=== PATIENT | female | born 1945 | race Hispanic/Latino ===

== ENCOUNTER → 2018-11-24 | Outpatient (CLI) | payer MEDICARE ==
[~2018-11-24] MED LIST: ATOR10 PO; BUSP15 PO; CEPH500T PO; ESOM40CA PO; EZET10 PO; FURO40TA7 PO; GLIP10TA9 PO; LEVO50 PO; LEVO500T2 PO; LIRA0.6P SQ; METF750T2 PO; METO25 PO; OXYB15TA PO; QUIN20TA26 PO; TRAM50TA4 PO
== END | disposition home or self-care (01) ==
LOC: RAH 11:36
PROVIDERS: ATTEND Internal Medicine
DX: I82.402 Acute embolism and thrombosis of unspecified deep veins of left lower extremity (principal)
CPT/HCPCS: 93971

== ENCOUNTER 2019-03-03 16:30 | Inpatient (IN) | payer MEDICARE ==
[~2019-03-03] VITALS: Ht 160 cm; Wt 114.2 kg
[~2019-03-03 16:30] MED LIST changes: -ATOR10 PO; -CEPH500T PO; -ESOM40CA PO; -METF750T2 PO; -TRAM50TA4 PO
[2019-03-03 17:47] LABS: BASOPHILS % (AUTO) 0.4 % (0.0-5.0); EOSINOPHILS % (AUTO) 1.7 % (0.0-8.0); LYMPHOCYTES % (AUTO) 14.2 % (21.0-51.0); MEAN CORPUSCULAR VOLUME 90.8 fL (79-99); MONOCYTES % (AUTO) 6.3 % (3.0-13.0); NEUTROPHILS % (AUTO) 77.4 % (40.0-77.0); NUCLEATED RED BLOOD CELLS 0.1 % (0.0-0.19); PLATELET COUNT (AUTO) 65 K/uL (130-400); RED BLOOD CELL COUNT(AUTO) 3.19 MIL/uL (4.00-5.50); RED CELL DISTRIBUTION WIDTH 15.5 % (11.0-15.5); WHITE BLOOD COUNT (AUTO) 3.1 K/uL (4.8-10.8)
[2019-03-03 17:57] LABS: CREATININE 0.8 mg/dL (0.5-1.5); POTASSIUM 4.5 mmol/L (3.5-5.1)
[2019-03-03 18:02] LABS: ALBUMIN 2.9 g/dL (3.5-5.0); BILIRUBIN,TOTAL 0.6 mg/dL (0.2-1.0); TOTAL PROTEIN, SERUM 7.6 g/dL (6.0-8.3)
[2019-03-03 18:13] LABS: B-TYPE NATRIURETIC PEPTIDE 487 pg/mL (0-100)
[2019-03-03 18:18] LABS: PLATELET MORPHOLOGY COMMENT DECREASED
[2019-03-03 18:45] LABS: APPEARANCE,URINE Clear (CLEAR); BILIRUBIN,URINE Negative (NEGATIVE); COLOR,URINE Yellow (YELLOW); GLUCOSE, URINE (UA) Negative (NEGATIVE); KETONES,URINE Negative (NEGATIVE); LEUKOCYTE ESTERASE ,URINE Negative (NEGATIVE); NITRATE,URINE Negative (NEGATIVE); OCCULT BLOOD,URINE Negative (NEGATIVE); PH,URINE 5.5 (5.0-8.0); PROTEIN,URINE POS 1+ mg/dL (NEGATIVE); UROBILINOGEN,URINE 0.2 mg/dL (0.2-1.0)
[2019-03-03 18:51] LABS: BACTERIA,URINE Rare /HPF (None Seen); MUCUS,URINE Rare LPF (None Seen); RBC,URINE 0-1 /HPF (0-1); SQUAMOUS EPITHELIAL CELL,UR Few /HPF (0-2); WBC,URINE 0-1 /HPF (0-1); YEAST,URINE BUDDING Rare /HPF (None Seen)
[2019-03-03] MEDS ORDERED: FUROSEMIDE 10 MG/ML 4ML VIAL ONE (19:09)
[2019-03-03] MEDS ORDERED: DEXTROSE 50%-WATER 50 ML DISP.SYRIN IV PRN (19:30)
[2019-03-03] MEDS ORDERED: GLUCAGON 1MG KIT 1 MG ML IM PRN (19:30)
[2019-03-03] MEDS ORDERED: MAGNESIUM 2GM PREMIX 50ML 50 ML IV PRN (19:45)
[2019-03-03] MEDS ORDERED: ACETAMINOPHEN 325 MG TAB PO PRN ×2 (19:45)
[2019-03-03] MEDS ORDERED: POTASSIUM CHLORIDE 20MEQ/100ML 100 ML IV PRN (19:45)
[2019-03-03] MEDS ORDERED: POTASSIUM CHLORIDE 10% ELIXIR 20 MEQ/15 ML UDCUP PO PRN (19:45)
[2019-03-03] MEDS ORDERED: ONDANSETRON HCL 4 MG/2 ML VIAL IV PRN (19:45)
[2019-03-03] MEDS ORDERED: LIDOCAINE HCL-MPF 1% 2ML VIAL IVP PRN (19:45)
[2019-03-03] MEDS ORDERED: NITROGLYCERIN 0.4 MG SL TAB SL PRN (19:45)
[2019-03-03 20:11] LABS: % IRON SATURATION 13.8 % (22-44)
[2019-03-03 20:17] LABS: HEMOGLOBIN A1C 6.2 % (4.0-6.0)
[2019-03-03] MEDS ORDERED: AZITHROMYCIN 500MG+NS 250ML 250 ML IV SCH (20:30)
[2019-03-03] MEDS: LEVOFLOXACIN 500 MG/D5W 100 ML 100 ML IV SCH (20:30)
[2019-03-03] MEDS ORDERED: FAMOTIDINE 20MG TAB 20 MG TAB ONE (20:51)
[2019-03-03] MEDS: FAMOTIDINE 20MG TAB 20 MG TAB PO SCH (21:00)
[2019-03-03] MEDS: INSULIN HUMULIN R 100 UNIT/ML 3ML SQ SCH (21:00)
[2019-03-03] MEDS ORDERED: LEVOFLOXACIN 500 MG/D5W 100 ML 100 ML ONE (23:00)
[2019-03-03] MEDS ORDERED: AZITHROMYCIN 500MG+NS 250ML 250 ML IV ONE (23:43)
[2019-03-04] MEDS ORDERED: ACETAMINOPHEN 325 MG TAB ONE (00:59)
[2019-03-04] MEDS ORDERED: SODIUM CHLORIDE 3% FOR INHALATION 4 ML/AMP VIAL.NEB IH ONE ×3 (01:33→17:59)
[2019-03-04] MEDS ORDERED: DIPHENHYDRAMINE HCL 25 MG CAPSULE ONE (05:01)
[2019-03-04 06:09] LABS: BASOPHILS % (AUTO) 0.7 % (0.0-5.0); EOSINOPHILS % (AUTO) 1.5 % (0.0-8.0); LYMPHOCYTES % (AUTO) 16.8 % (21.0-51.0); MEAN CORPUSCULAR HEMOGLOBIN 29.6 pg (27.0-33.0); MEAN CORPUSCULAR VOLUME 89.7 fL (79-99); MONOCYTES % (AUTO) 8.2 % (3.0-13.0); NEUTROPHILS % (AUTO) 72.8 % (40.0-77.0); PLATELET COUNT (AUTO) 69 K/uL (130-400); RED BLOOD CELL COUNT(AUTO) 3.23 MIL/uL (4.00-5.50); RED CELL DISTRIBUTION WIDTH 15.5 % (11.0-15.5); WHITE BLOOD COUNT (AUTO) 2.9 K/uL (4.8-10.8)
[2019-03-04 06:22] LABS: ALBUMIN 2.8 g/dL (3.5-5.0); BILIRUBIN,TOTAL 0.9 mg/dL (0.2-1.0); MAGNESIUM 1.6 mg/dL (1.80-2.40); POTASSIUM 3.8 mmol/L (3.5-5.1); TOTAL PROTEIN, SERUM 7.3 g/dL (6.0-8.3)
[2019-03-04 06:41] LABS: B-TYPE NATRIURETIC PEPTIDE 586 pg/mL (0-100)
[2019-03-04] MEDS: INSULIN HUMULIN R 100 UNIT/ML 3ML SQ SCH ×4 (07:30→21:00)
[2019-03-04 07:34] LABS: EOSINOPHILS % (MANUAL) 1 % (1-6); LYMPHOCYTES % (MANUAL) 13 % (22-44); MONOCYTES % (MANUAL) 3 % (2-9); SEGMENTED NEUTROPHILS % 83 % (40-70)
[2019-03-04 07:46] LABS: MAN.DIFF COMMENT-IMPRESSION MANUAL DIFFERENTIAL
[2019-03-04 07:49] LABS: PLATELET MORPHOLOGY COMMENT DECREASED
[2019-03-04 09:30] VITALS: BP 186/81
[2019-03-04 11:00] VITALS: BP 185/81
--- NOTE | 2019-03-04 12:00 | NUR ---
DR. DOMINIQUE TA SPOKE WITH [facility]. STATES THEY WILL CALL BACK.
[2019-03-04] MEDS: FAMOTIDINE 20MG TAB 20 MG TAB PO SCH ×2 (12:17→21:59)
[2019-03-04] MEDS: FUROSEMIDE 10 MG/ML 4ML VIAL IV SCH ×2 (12:22→20:15)
--- NOTE | 2019-03-04 13:14 | NUR ---
ÁNGEL Carmichael met with pt who lives alone, has provider 4hrs a day thru [facility] to assist with ADLS, and home management. Pt has gianni shafer and w/c. Pt states she needs O2 for home. Pt has no HH services, daughter margareth Cerda [phone] is ER contact Addendum: 03/04/19 at 1316 by SALVADOR KENYON SS Amended: Links added.
[2019-03-04] MEDS ORDERED: ALPR0.25 PO (15:23)
--- NOTE | 2019-03-04 15:59 | NUR ---
MAYKEL BURNETT, OF DR. FOX, CALLED BACK INFORMATION GIVEN TO HER, STATES WILL CALL YOU AGAIN WITH RECOMMENDATIONS.
[2019-03-04 20:00] VITALS: BP 160/74
[2019-03-04] MEDS: IPRATROPIUM/ALBUTEROL SULFATE 3 ML SOLUTION IH PRN (20:13)
[2019-03-04] MEDS ORDERED: MAGNESIUM 2GM PREMIX 50ML 50 ML IV PRN ×2 (20:15)
[2019-03-04] MEDS ORDERED: OXYBUTYNIN CHLORIDE 5 MG TABLET PO PRN (21:00)
[2019-03-04] MEDS: LEVOFLOXACIN 500 MG/D5W 100 ML 100 ML IV SCH (21:58)
[2019-03-04] MEDS: METOPROLOL TARTRATE 50 MG TAB PO SCH (21:59)
[2019-03-04] MEDS ORDERED: DIPHENHYDRAMINE HCL 25 MG CAPSULE PO SCH (22:00)
[2019-03-04] MEDS: BUSPIRONE HCL 5 MG TABLET PO PRN (22:32)
[2019-03-04] MEDS: ALPRAZOLAM 0.25 MG TABLET PO PRN (22:32)
[2019-03-05] VITALS (7 sets, daily range): BP systolic 128–183; BP diastolic 52–81
[2019-03-05] MEDS ORDERED: LEVOTHYROXINE 50 MCG TABLET ONE (05:17)
[2019-03-05] MEDS: INSULIN HUMULIN R 100 UNIT/ML 3ML SQ SCH ×4 (05:45→21:18)
[2019-03-05] MEDS: LEVOTHYROXINE 50 MCG TABLET PO SCH (05:45)
[2019-03-05 07:36] LABS: BASOPHILS % (AUTO) 1.4 % (0.0-5.0); EOSINOPHILS % (AUTO) 2.8 % (0.0-8.0); HEMATOCRIT 33.2 % (36-48); LYMPHOCYTES % (AUTO) 15.4 % (21.0-51.0); MEAN CORPUSCULAR HEMOGLOBIN 29.8 pg (27.0-33.0); MEAN CORPUSCULAR HGB CONC 33.4 g/dL (32.0-36.0); MEAN CORPUSCULAR VOLUME 89.3 fL (79-99); MONOCYTES % (AUTO) 6.5 % (3.0-13.0); NEUTROPHILS % (AUTO) 73.9 % (40.0-77.0); PLATELET COUNT (AUTO) 86 K/uL (130-400); RED BLOOD CELL COUNT(AUTO) 3.72 MIL/uL (4.00-5.50); RED CELL DISTRIBUTION WIDTH 15.2 % (11.0-15.5); WHITE BLOOD COUNT (AUTO) 4.2 K/uL (4.8-10.8)
[2019-03-05 07:52] LABS: CREATININE 1.1 mg/dL (0.5-1.5); POTASSIUM 3.5 mmol/L (3.5-5.1)
[2019-03-05] MEDS: FUROSEMIDE 10 MG/ML 4ML VIAL IV SCH ×2 (08:38→17:20)
[2019-03-05] MEDS: FAMOTIDINE 20MG TAB 20 MG TAB PO SCH ×2 (08:39→21:10)
[2019-03-05] MEDS: METOPROLOL TARTRATE 50 MG TAB PO SCH ×2 (08:39→21:11)
[2019-03-05] MEDS: QUINAPRIL HCL 20 MG PO SCH ×2 (08:53→21:00)
[2019-03-05] MEDS: POTASSIUM CHLORIDE 20 MEQ ERTAB PO PRN ×2 (17:21→19:52)
[2019-03-05] MEDS: LEVOFLOXACIN 500 MG/D5W 100 ML 100 ML IV SCH (19:52)
[2019-03-06 04:00] VITALS: BP 178/75
[2019-03-06] MEDS ORDERED: HYDRALAZINE HCL 20 MG/ML VIAL IV PRN ×2 (04:00)
[2019-03-06] MEDS ORDERED: HYDRALAZINE HCL 20 MG/ML VIAL ONE (04:01)
[2019-03-06] MEDS: ALPRAZOLAM 0.25 MG TABLET PO PRN ×2 (04:19→21:53)
[2019-03-06 04:28] LABS: BASOPHILS % (AUTO) 0.7 % (0.0-5.0); HEMATOCRIT 30.6 % (36-48); LYMPHOCYTES % (AUTO) 18.9 % (21.0-51.0); MEAN CORPUSCULAR HEMOGLOBIN 29.5 pg (27.0-33.0); MEAN CORPUSCULAR HGB CONC 33.1 g/dL (32.0-36.0); MEAN CORPUSCULAR VOLUME 89.2 fL (79-99); MONOCYTES % (AUTO) 8.5 % (3.0-13.0); NEUTROPHILS % (AUTO) 68.9 % (40.0-77.0); NUCLEATED RED BLOOD CELLS 0.1 % (0.0-0.19); PLATELET COUNT (AUTO) 77 K/uL (130-400); RED BLOOD CELL COUNT(AUTO) 3.43 MIL/uL (4.00-5.50); RED CELL DISTRIBUTION WIDTH 15.5 % (11.0-15.5); WHITE BLOOD COUNT (AUTO) 3.8 K/uL (4.8-10.8)
[2019-03-06 04:34] LABS: CREATININE 1.1 mg/dL (0.5-1.5); POTASSIUM 3.7 mmol/L (3.5-5.1)
[2019-03-06 06:07] VITALS: BP 155/70
[2019-03-06] MEDS: IPRATROPIUM/ALBUTEROL SULFATE 3 ML SOLUTION IH PRN ×2 (06:18→19:01)
[2019-03-06] MEDS: INSULIN HUMULIN R 100 UNIT/ML 3ML SQ SCH ×4 (06:33→21:49)
[2019-03-06] MEDS: LEVOTHYROXINE 50 MCG TABLET PO SCH (06:38)
[2019-03-06] MEDS: POTASSIUM CHLORIDE 20 MEQ ERTAB PO PRN (06:38)
[2019-03-06 08:00] VITALS: BP 163/71
[2019-03-06] MEDS: QUINAPRIL HCL 20 MG PO SCH ×2 (09:00→21:00)
[2019-03-06] MEDS: METOPROLOL TARTRATE 50 MG TAB PO SCH ×2 (09:13→20:20)
[2019-03-06] MEDS: FUROSEMIDE 10 MG/ML 4ML VIAL IV SCH ×2 (09:13→17:39)
[2019-03-06] MEDS: FAMOTIDINE 20MG TAB 20 MG TAB PO SCH ×2 (09:13→20:21)
[2019-03-06] MEDS: BUSPIRONE HCL 5 MG TABLET PO PRN (10:28)
[2019-03-06 11:00] VITALS: BP 109/44
--- NOTE | 2019-03-06 11:28 | NUR ---
RD Notification Pt tolerating 75gm CCD with report of no GI distress and Good PO intake at 75-100%. Pt LBM 03/05/19. Pt monitored labs: BUN 19, GFR 52, Glu 131, Alb 2.8. Pt reports no nutritional questions or concerns at this time. RD to continue to monitor. Please notify RD as additional nutrition concerns arise. Thank you. Addendum: 03/06/19 at [address] Amended: Links added.
--- NOTE | 2019-03-06 13:00 | NUR ---
Janine Referral/PASRR faxed to [facility]. Davila notified via phone, mentions will eval in am.
[2019-03-06] MEDS ORDERED: FLUCONAZOLE 200 MG/NS 100 ML 100 ML IV SCH ×2 (15:42→19:16)
[2019-03-06 16:00] VITALS: BP 140/64
[2019-03-06 20:00] VITALS: BP 136/70
[2019-03-06] MEDS: LEVOFLOXACIN 500 MG/D5W 100 ML 100 ML IV SCH (20:21)
[2019-03-07] VITALS: BP 156/70
[2019-03-07 04:00] VITALS: BP 125/71
[2019-03-07] MEDS: INSULIN HUMULIN R 100 UNIT/ML 3ML SQ SCH ×3 (07:03→16:30)
[2019-03-07] MEDS: LEVOTHYROXINE 50 MCG TABLET PO SCH (07:05)
[2019-03-07 07:32] VITALS: BP 125/60
[2019-03-07] MEDS: QUINAPRIL HCL 20 MG PO SCH (09:00)
[2019-03-07 11:04] VITALS: BP 123/65
[2019-03-07] MEDS: METOPROLOL TARTRATE 50 MG TAB PO SCH (11:40)
[2019-03-07] MEDS: ZOSYN 3.375GM+NS 50ML 50 ML IV SCH ×2 (11:40→16:51)
[2019-03-07] MEDS: FUROSEMIDE 10 MG/ML 4ML VIAL IV SCH ×2 (11:41→16:51)
[2019-03-07] MEDS: FAMOTIDINE 20MG TAB 20 MG TAB PO SCH (11:41)
[2019-03-07 12:01] LABS: INR 1.24 (0.85-1.15)
--- NOTE | 2019-03-07 14:00 | NUR ---
REFERRAL TO [facility] IN PROCESS PICC LINE, ORDER, FREDERICK FROM [facility] WAS HERE TO SEE PATIENT, MED REC WAS FAXED,CALEB REYES WAS AWARE; ALL GO FOR THIS PT. Addendum: 03/07/19 at 1747 by BRAIN HAMLIN RN CM Amended: Links added.
--- NOTE | 2019-03-07 16:00 | NUR ---
ACCEPTED BY ANGELA Addendum: 03/07/19 at 1747 by BRAIN HAMLIN RN CM Amended: Links added.
[2019-03-07 16:29] VITALS: BP 157/54
--- NOTE | 2019-03-07 18:00 | NUR ---
[facility] STAFF HERE, PATIENT DISCHARGED TO SNF. USING TEACH BACK TECH. RE. NEW MEDS, HOME MEDS, AND WHAT TO CONTINUE AT [facility]. YOU WILL CONTINUE CARE AT [facility] FOR CONTINUITY OF CARE FOR ANTIBIOTIC THERAPY. FOLLOW UP WITH YOUR PRIMARY DOCTOR SEAN IN 1 WEEK AFTER DISCHARGE FROM [facility]. IF HAVING FEVERS, CHILLS, SHORTNESS OF BREATH OR COUGH WORSENS CALL YOUR PRIMARY DOCTOR. CALL 911 IF CHEST PAIN OR SHORTNESS OF BREATH DOES NOT RESOLVE WITH REST. REPORT GIVEN TO ALLA GILLIAM FROM [facility], PICC LINE IN PLACE PER DR. OCHOA, AND OKAY TO USE. INTACT NO BLEEDING. IV OUT INTACT, NO BLEEDING, TELE REMOVED BY YAMILKA BENSON. AAOX3, NO SOB. DAUGHTERS AT BEDSIDE.
== END 2019-03-07 18:50 | DRG 291 ==
LOC: EDH 16:30 → EDHIP 18:50 → 4CH 03-04 08:28
PROVIDERS: ADMIT Internal Medicine; ATTEND Internal Medicine
PROC: 02HV33Z Insertion of Infusion Device into Superior Vena Cava, Percutaneous Approach (ICD-10-PCS; principal; 2019-03-07)
DX: I11.0 Hypertensive heart disease with heart failure (principal); J18.9 Pneumonia, unspecified organism; B37.1 Pulmonary candidiasis; G93.41 Metabolic encephalopathy; Z68.42 Body mass index [BMI] 45.0-49.9, adult; I50.33 Acute on chronic diastolic (congestive) heart failure; E66.01 Morbid (severe) obesity due to excess calories; D69.6 Thrombocytopenia, unspecified; R19.5 Other fecal abnormalities; F41.9 Anxiety disorder, unspecified; B96.5 Pseudomonas (aeruginosa) (mallei) (pseudomallei) as the cause of diseases classified elsewhere; D64.9 Anemia, unspecified; E11.9 Type 2 diabetes mellitus without complications; E78.5 Hyperlipidemia, unspecified; M32.9 Systemic lupus erythematosus, unspecified; Z83.3 Family history of diabetes mellitus; Z82.49 Family history of ischemic heart disease and other diseases of the circulatory system
CPT/HCPCS: 36415; 71045; 80048; 80053; 81001; 82270; 82728; 82948; 83036; 83540; 83550; 83735; 83880; 84484; 85025; 85610; 87040; 87071; 87077; 87186; 87205; 87486; 87581; 87633; 87798; 93005; 94640; 94664; 97039; C1894; G0378; J0360; J0456; J1450; J1815; J1940; J1956; J2543; J3475; Q0163

== ENCOUNTER → 2023-03-02 | Outpatient (CLI) | payer OTHER, MEDICARE ==
[~2023-03-02] MED LIST changes: -EZET10 PO; +EZET10TA13 PO; +FERR-63 PO; +FLUT12AE IH; -GLIP10TA9 PO; -LEVO500T2 PO; -LIRA0.6P SQ; -METO25 PO; +METO50TA18 PO; -OXYB15TA PO; +PANT40TA55 PO; -QUIN20TA26 PO; +SPIR25TA6 PO
== END | disposition home or self-care (01) ==
LOC: SHCH 15:27
PROVIDERS: ATTEND Internal Medicine
DX: I35.0 Nonrheumatic aortic (valve) stenosis (principal)
CPT/HCPCS: 93306